=== PATIENT | female | born 1945 | race Caucasian/White ===

== ENCOUNTER 2020-09-25 18:23 | Inpatient (IN) | payer MEDICARE, MEDICAID ==
[~2020-09-25] VITALS: Ht 165.1 cm; Wt 80.0 kg
--- NOTE | 2020-09-25 18:23 | NUR ---
PT TO ROOM VIA EMS STRETCHER, STROKE ALERT CALLED.
--- NOTE | 2020-09-25 18:30 | NUR ---
1823 PATIENT SEEN ON EMS STRETCHER PATIENT HAS LEFT SIDED FACIAL DROP WITH DYSARTHRIA AND LEFT FACE AND ARM SENSATION LOSS. STROKE ALERT CALLED 1830 PATIENT IN RADIOLOGY AND SEEING NEUROLOGIST DR BEEBE ALL SYMPTOMS AT THIS TIME HAS RESOLVED. PATIENT STATES BACK TO HER NORMAL. 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 ED MD NOTIFIED OF PATIENT RESULTS
[2020-09-25 18:52] LABS: GFR > 60 ML/MIN (>=60 (CALC)); GFR FOR AFR.AMER. > 60 ML/MIN (>=60 (CALC))
[2020-09-25 18:56] LABS: HEMATOCRIT 42.3 % (37.0-47.0); HEMOGLOBIN 14.1 g/dl (12.0-16.0); IMMATURE GRANULOCYTES 0.3 % (0.0-5.0); MEAN CELL VOLUME 89.6 fL CALC (80.0-100.0); MEAN CORPUSCULAR HGB 29.9 pG CALC (26.0-32.0); MEAN CORPUSCULAR HGB CONC 33.3 g/dL CAL (32.0-36.0); NEUT# 7.63 thou/uL (2.00-7.15); RED BLOOD COUNT 4.72 mill/uL (4.20-5.60); RED CELL DISTRI WIDTH 12.9 % (11.5-15.5)
--- NOTE | 2020-09-25 19:08 | NUR ---
assist tele-neurologist with walk test. No alteplase recommended at this time. reassess if symptoms return before 2230
[2020-09-25 19:13] LABS: ALKALINE PHOSPHATASE 69 u/l (38-126); ANION GAP 12 (6-22 (CALC)); BILIRUBIN, TOTAL 0.6 mg/dL (0.0-1.4); BUN 8 mg/dL (8-23); BUN/CREATININE RATIO 11 (12-20 (CALC)); CARBON DIOXIDE 23 mmol/l (22-30); CHLORIDE 103 mmol/l (95-108); CREATININE 0.7 mg/dL (0.5-1.0); GFR > 60 ML/MIN (>=60 (CALC)); GFR FOR AFR.AMER. > 60 ML/MIN (>=60 (CALC)); POTASSIUM 3.5 mmol/l (3.5-5.1); SGOT/AST 29 u/l (9-36); SODIUM 134 mmol/l (137-146); TOTAL PROTEIN 7.1 g/dL (6.3-8.2)
--- NOTE | 2020-09-25 19:25 | NUR ---
PATIENT REPORTS THAT SHE WAS ATTEMPTING TO LAINE TO THE RESTROOM WHEN SHE FELT LIGHT-HEADED, WEAK, AND FELL AT HOME. DENIES LOSS OF CONSCIOUSNESS. REPORTS HAVING A BLEED IN HER BRAIN IN 2019. REPORTS PREVIOUS STROKE LEFT RIGHT LEG WEAKNESS. PATIENT WITH ABRASION TO RIGHT KNEE, AND C/O LEFT HAND PAIN FROM FALL. SLIGHT ASYMETRY OF MOUTH NOTED WITHOUT DROOP WHEN PATIENT SMILES AND SHOWS TEETH. WILL CONTINUE TO MONITOR.
[2020-09-25 20:17] LABS: URINE BILIRUBIN - DIPSTICK NEGATIVE (NEGATIVE); URINE BLOOD DIPSTICK NEGATIVE (NEGATIVE); URINE CLARITY CLEAR; URINE COLOR YELLOW; URINE GLUCOSE - DIPSTICK NEGATIVE (NEGATIVE); URINE KETONE NEGATIVE (NEGATIVE); URINE LEUK ESTERASE NEGATIVE (Negative); URINE NITRITE - DIPSTICK NEGATIVE (Negative); URINE PH 5.5 (4.5-8.0); URINE PROTEIN - DIPSTICK NEGATIVE (NEG-TRACE); URINE UROBILINOGEN - DIPSTICK 0.2 E.U./dL (0.2)
--- NOTE | 2020-09-25 20:30 | NUR ---
SON AT BEDSIDE. PATIENT AND SON AGREES WITH PLAN FOR ADMISSON TO ICU. NO CHANGES IN ASSESSMENT NOTED.
[2020-09-25] MEDS ORDERED: MULTI VIT PO (20:46)
[2020-09-25] MEDS ORDERED: DOCUSATE CAL240 MG PO (20:46)
[2020-09-25] MEDS ORDERED: KEPPRA XR500 MG PO (20:47)
[2020-09-25] MEDS ORDERED: NORVASC5 M1 PO (20:47)
[2020-09-25] MEDS ORDERED: LOSARTAN POTASS25 MG PO (20:49)
[2020-09-25] MEDS ORDERED: PRAVASTATIN SOD20 MG PO (20:51)
[2020-09-25] MEDS ORDERED: FLOVENT HF110 MCG/AC (20:53)
--- NOTE | 2020-09-25 21:06 | NUR ---
CALL PLACED TO DR. DUVAL REGARDING MED RECCONCILLIATION.
--- NOTE | 2020-09-25 21:07 | NUR ---
REPORT GIVEN TO LAKEISHA IN ICU FOR ADMIT
--- NOTE | 2020-09-25 21:20 | NUR ---
RECEIVED INTO ICU BED 4 FROM ER PER STRETCHER. PATIENT AMBULATED A FEW STEPS FROM DOORWAY TO BED WITH TWO PERSON ASSIST. PATIENT STATES THAT AT HOME SHE USES A WALKER FOR AMBULATION. ASSISTED INTO BED AND PLACED ON NEW AUTOS DELIVERY DRIVER SHOWING SR. ORIENTED TO SURROUNDINGS. EXPLAINED USE OF CALL JUSTIN AND BED CONTROLS.
--- NOTE | 2020-09-25 21:20 | NUR ---
PATIENT TRANSPORTED TO ICU IN STABLE CONDITION ON MONITOR ACCOMPANIED BY THIS NURSE.
[2020-09-25 21:30] VITALS: BP 155/72
--- NOTE | 2020-09-25 21:30 | NUR ---
ALERT AND ORIENTED X3. SPEECH CLEAR WITH APROPRIATE RESPONSES TO QUESTIONS. FACE SYMMETRICAL. TONGUE MIDLINE ON EXTENSION. HG WEAK ON LEFT AND STRONG ON RIGHT. P/P EQUAL AND FIRM. FOLLOWS DIRECTIONS. NIH SCORE 0. PATIENT DENIES HEADACHE, DIZZINESS, BLURRED OR DOUBLE VISION. NO C/O NUMBNESS OR TINGLING. RESP NON-LABORED. LUNGS CLEAR. DISCUSSED PLAN OF CARE. DENIES NEEDS AT THIS TIME. CALL JUSTIN IN REACH. PATIENT PROVIDED WITH MEAL.
[2020-09-25 21:45] VITALS: BP 191/79
[2020-09-25 22:00] VITALS: BP 181/78
--- NOTE | 2020-09-25 22:00 | NUR ---
STROKE ADMISSION PACKAGE REQUESTED FROM CHARGE NURSE
--- NOTE | 2020-09-25 22:00 | NUR ---
ASSISTED PATIENT UP TO BSC, STEWART CLEAR YELLOW URINE. PATIENT DOES REQUIRE ASSISTANCE TO GET UP OOB. REMINDED OF FALL PRECAUTIONS IN PLACE AND TO USE CALL JUSTIN FOR ASSISTANCE. PATIENT VERBALIZES UNDERSTANDING OF TEACHING.
[2020-09-25 23:00] VITALS: BP 168/79
[2020-09-26] VITALS (15 sets, daily range): BP systolic 141–190; BP diastolic 63–81
--- NOTE | 2020-09-26 00:30 | NUR ---
ASSISTED UP TO BSC TO VOID. NO C/O VOICED BY PATIENT. VSS. SB-SR ON MONITOR.
--- NOTE | 2020-09-26 02:00 | NUR ---
RESTING WITH EYES CLOSED. RESP NON-LABORED. VSS. SB-SR ON MONITOR.
--- NOTE | 2020-09-26 04:00 | NUR ---
VSS. RESP NON-LABORED. SB ON MONITOR. IV INFUSING WITHOUT INCIDENT.
--- NOTE | 2020-09-26 05:05 | NUR ---
ASSISTED PATIENT UP TO BR WITH ONE ASSIST AND USE OF WALKER. VOIDS LARGE AMOUNT CLEAR YELLOW URINE. NEURO STATUS UNCHANGED FROM PREVIOUS ASSESSMENT.
--- NOTE | 2020-09-26 08:00 | NUR ---
PT RESTING WHEN CAME IN TO DO ASSESSMENT. ALERT AND ORIENTED. S1 AND S2 HEARD. LUNG SOUNDS CLEAR. BOWELS SOUNDS ACTIVE IN ALL 4 QUADRANTS. PEDAL PULSES EQUALLY STRONG BILATERALLY. IV PATENT AND HEALTHY. NO DISTRESS NOTED. PTS CALL LIGHT WITHIN REACH.
--- NOTE | 2020-09-26 08:10 | NUR ---
PT TAKEN TO MRI VIA WC ACCOMPANIED BY THIS MACHINE JOINT CUTTER AND Bruce LANDA RN. MAX ASSIST TO WC, PT ABLE TO BEAR SOME WEIGHT WITH LT LEG.
--- NOTE | 2020-09-26 10:07 | NUR ---
Colt GUNTER AT BEDSIDE FOR PHYSICAL THERAPY MAHESH
--- NOTE | 2020-09-26 12:00 | NUR ---
PT IN BED. NO DISTRESS NOTED. CALL LIGHT WITHIN REACH.
--- NOTE | 2020-09-26 14:02 | NUR ---
PT RESTING COMFORTABLY IN BED. NO DISTRESS NOTED. CALL LIGHT WITHIN REACH.
--- NOTE | 2020-09-26 14:06 | NUR ---
PT IN BED. SON IN ROOM VISITING HER. NO DISTRESS NOTED. PT'S CALL LIGHT WITHIN REACH.
--- NOTE | 2020-09-26 15:27 | NUR ---
SPEECH THERAPY AT BEDSIDE FOR CONSULT.
--- NOTE | 2020-09-26 16:42 | NUR ---
PT TAKEN TO [facility] ROOM 260 WITH TELEMETRY IN STABLE CONDITION. ORIENTED PT TO HER ROOM. CALL LIGHT LEFT WITHIN REACH.
--- NOTE | 2020-09-26 17:10 | NUR ---
HUB INVENTORY SPECIALIST AT BEDSIDE OBTAINING ECHO
--- NOTE | 2020-09-26 19:00 | NUR ---
REPORT RECEIVED FROM Mayuri NAVARRO RN, CARE OF PT ASSUMED AT THIS TIME.
--- NOTE | 2020-09-26 20:05 | NUR ---
SCHEDULED MEDICATIONS ADMINISTERED AT THI TIME REQUESTED BY PT. PRN MOM ADMINISTERED PER PT REQUEST. SEE E-MAR. ICE CREAM CUP PROVIDED.
--- NOTE | 2020-09-26 20:51 | NUR ---
ECHO REPORT FAX RECEIVED AND REVIEWED. REPORT PLACED ON CHART.
[2020-09-27 04:00] VITALS: BP 163/75
[2020-09-27 05:58] LABS: HEMATOCRIT 40.9 % (37.0-47.0); HEMOGLOBIN 13.7 g/dl (12.0-16.0); MEAN CELL VOLUME 90.3 fL CALC (80.0-100.0); MEAN CORPUSCULAR HGB 30.2 pG CALC (26.0-32.0); MEAN CORPUSCULAR HGB CONC 33.5 g/dL CAL (32.0-36.0); RED BLOOD COUNT 4.53 mill/uL (4.20-5.60); RED CELL DISTRI WIDTH 12.9 % (11.5-15.5)
[2020-09-27 06:14] LABS: ANION GAP 12 (6-22 (CALC)); BUN 9 mg/dL (8-23); BUN/CREATININE RATIO 16 (12-20 (CALC)); CARBON DIOXIDE 27 mmol/l (22-30); CHLORIDE 102 mmol/l (95-108); CREATININE 0.6 mg/dL (0.5-1.0); GFR > 60 ML/MIN (>=60 (CALC)); GFR FOR AFR.AMER. > 60 ML/MIN (>=60 (CALC)); MAGNESIUM 2.5 mg/dL (1.6-2.3); SODIUM 137 mmol/l (137-146)
--- NOTE | 2020-09-27 07:00 | NUR ---
PT REPORT RECEIVED FROM NIGHT NURSES, NANDINI
--- NOTE | 2020-09-27 08:00 | NUR ---
PT WAS FOUND RESTING IN BED IN SEMI-LAWRENCE'S POSITION;PT IS A&OX3;VS AND ASSESSMENT WERE COMPLETED;PT HAS NO REPORTS OF PAIN AT THIS TIME;HEART SOUNDS ARE REGULAR IN RATE AND RHYTHM;LUNG SOUNDS ARE CLEAR;RESPIRATIONS ARE EVEN AND UNLABORED ON RA;TELE IS IN PLACE;ABDOMEN IS SOFT WITH ACTIVE BOWEL SOUNDS IN ALL QUADRANTS;PERIPHERAL PULSES ARE STRONG;NO EDEMA NOTED AT THIS TIME;PT HAS IRMA HOSE ON;#22G IV IN LH IS SL. PATENT AND APPEARS FREE OF COMPLICATIONS AT THIS TIME;SAFETY PRECAUTIONS IN PLACE;CALL LIGHT IN PLACE;PT ENCOURAGED TO CALL WITH ANY ISSUES OR CONCERNS;WILL CONTINUE TO MONITOR.
[2020-09-27 08:28] VITALS: BP 166/71
[2020-09-27 08:30] VITALS: BP 166/71
--- NOTE | 2020-09-27 08:53 | NUR ---
Pt upright in bed with breakfast tray at bedside. Pt on room air. Agreeable to work with TRUCK DRIVER HELPER. Cognitive-linguistic assessment completed using the Western Aphasia Battery Bedside (WAB-R) given to patient to determine further rehabilitation needs. Scores reported as follows: Spontaneous Speech (10), Fluency (10), Auditory verbal comprehension (10), sequential commands (6), repetition (10), object naming (10). Pt noted to have spelling errors on writing tasks. Clock drawing was significant for spatial planning deficits with left side of the clock completely missing. MD was notified, as patient may have visual field deficit. Unclear if deficit is from previous stroke or new stroke at this time. Pt was also unable to draw the hands on the clock and made no attempt despite multiple cues to "set the hands to ten minutes after 11." At this time recommend ST services when patient is discharged to rehabilitation for further assessment/treatment of cognitive-linguistic deficits.
[2020-09-27] MEDS ORDERED: ASPIRIN81 MG PO (09:00)
--- NOTE | 2020-09-27 09:20 | NUR ---
AND SWAPNA DOBBINS AT BEDSIDE DISCUSSING POC WITH PT
--- NOTE | 2020-09-27 11:06 | NUR ---
Discharge instructions given. Patient verbalizes understanding of same. Discharged in stable condition via Medical Transport to *Other with staff. All belongings sent with pt PT WAS PREPARED FOR DISCHARGE AND TRANSPORT TO [facility];DISCHARGE WAS DISCUSSED WITH PT;PT EXPRESSED UNDERSTANDING;TELE WAS REMOVED;IV WAS REMOVED WITHOUT COMPLICATIONS AND CATHETER INTACT; PT WAS TRANSPORTED IN STABLE CONDITION VIA STRETCHER WITH [facility];ALL PT BELONGINGS WERE SENT WITH PT;
--- NOTE | 2020-09-27 11:38 | NUR ---
PT TRANSFER REPORT CALLED TO [facility];SPOKE WITH NURSE DELGADILLO;PT INFO WAS GIVEN;SHE HAD NO FURTHER QUESTIONS FOR ME AT THIS TIME;
== END 2020-09-27 11:06 | DRG 65 ==
LOC: ED 18:23 → ED-I 19:42 → ED 20:10 → ICU 20:11 → MS2 09-26 16:00
PROVIDERS: Family Medicine; Nurse Practitioner; ADMIT Internal Medicine; ATTEND Hospitalist
DX: I63.59 Cerebral infarction due to unspecified occlusion or stenosis of other cerebral artery (principal); G81.94 Hemiplegia, unspecified affecting left nondominant side; R29.810 Facial weakness; R47.81 Slurred speech; R29.703 NIHSS score 3; I10 Essential (primary) hypertension; E78.5 Hyperlipidemia, unspecified; G40.909 Epilepsy, unspecified, not intractable, without status epilepticus; I66.22 Occlusion and stenosis of left posterior cerebral artery; I69.398 Other sequelae of cerebral infarction; M25.561 Pain in right knee; Z20.822 Contact with and (suspected) exposure to COVID-19
CPT/HCPCS: J1650; Q9967

== ENCOUNTER 2021-10-02 14:48 | Emergency (ER) | payer MEDICARE, MEDICAID ==
[~2021-10-02] VITALS: Ht 165.1 cm; Wt 74.0 kg
[~2021-10-02 14:48] MED LIST: ASPIRIN81 MG PO; DOCUSATE CAL240 MG PO; FLOVENT HF110 MCG/AC; KEPPRA XR500 MG PO; LOSARTAN POTASS25 MG PO; MULTI VIT PO; NORVASC5 M1 PO; PRAVASTATIN SOD20 MG PO
[2021-10-02 15:54] VITALS: BP 168/81
[2021-10-02 18:04] VITALS: BP 168/81
== END 2021-10-02 18:10 | disposition home or self-care (01) ==
LOC: ED 14:48
PROC: 0HQFXZZ Repair Right Hand Skin, External Approach (ICD-10-PCS; principal; 2021-10-02)
DX: S61.212A Laceration without foreign body of right middle finger without damage to nail, initial encounter (principal); I10 Essential (primary) hypertension; E78.5 Hyperlipidemia, unspecified; W26.9XXA Contact with unspecified sharp object(s), initial encounter; Y93.89 Activity, other specified; Z86.79 Personal history of other diseases of the circulatory system

== ENCOUNTER 2022-04-14 10:45 | Emergency (ER) | payer MEDICARE, MEDICAID ==
[~2022-04-14] VITALS: Ht 165.1 cm; Wt 79.4 kg
[2022-04-14 11:09] LABS: BASO% 0.9 % (0-3); EOS% 10.4 % (0-8); HEMATOCRIT 44.9 % (37.0-47.0); HEMOGLOBIN 15.1 g/dl (12.0-16.0); IMMATURE GRANULOCYTES 0.1 % (0.0-5.0); LYMPH% 26.8 % (15-41); MEAN CELL VOLUME 91.3 fL CALC (80.0-100.0); MEAN CORPUSCULAR HGB 30.7 pG CALC (26.0-32.0); MEAN CORPUSCULAR HGB CONC 33.6 g/dL CAL (32.0-36.0); MONO% 5.3 % (2-13); NEUT# 4.38 thou/uL (2.00-7.15); NEUT% 56.5 % (42-76); RED BLOOD COUNT 4.92 mill/uL (4.20-5.60); RED CELL DISTRI WIDTH 12.6 % (11.5-15.5)
[2022-04-14 11:22] LABS: ALBUMIN 4.7 g/dL (3.2-5.0); ANION GAP 11 (6-22 (CALC)); BILIRUBIN, TOTAL 0.5 mg/dL (0.0-1.4); BUN 12 mg/dL (8-23); BUN/CREATININE RATIO 19 (12-20 (CALC)); CARBON DIOXIDE 27 mmol/l (22-30); CHLORIDE 103 mmol/l (95-108); CREATININE 0.7 mg/dL (0.5-1.0); GFR FOR AFR.AMER. > 60 ML/MIN (>=60 (CALC)); GFR OTHER RACES > 60 ML/MIN (>=60 (CALC)); SGOT/AST 32 u/l (9-36); SODIUM 138 mmol/l (137-146); TOTAL PROTEIN 7.7 g/dL (6.3-8.2)
[2022-04-14 11:23] LABS: ALKALINE PHOSPHATASE 109 u/l (38-126)
[2022-04-14] MEDS ORDERED: AMOX/K CLAV875 M1 PO (13:19)
[2022-04-14] MEDS ORDERED: MECLIZINE 2525 MG PO (13:23)
[2022-04-14 13:28] VITALS: BP 171/87
== END 2022-04-14 13:42 | disposition home or self-care (01) ==
LOC: ED 10:45
PROVIDERS: Family Medicine
DX: R42 Dizziness and giddiness (principal); R59.0 Localized enlarged lymph nodes; I10 Essential (primary) hypertension; E11.9 Type 2 diabetes mellitus without complications; E78.5 Hyperlipidemia, unspecified; Z86.73 Personal history of transient ischemic attack (TIA), and cerebral infarction without residual deficits; Z20.822 Contact with and (suspected) exposure to COVID-19
CPT/HCPCS: Q9967